=== PATIENT | male | born 1965 ===

== ENCOUNTER 2018-02-17 09:53 | Emergency (ER) | payer OTHER ==
[2018-02-17 10:07] VITALS: PULSE 80; RESP 18
--- NOTE | 2018-02-17 10:36 | C.PDOC ---
History Of Present Illness 52 year old male sent to the ER by primary care office for further evaluation. 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 Patient reports he fell down but does not think he had LOC. He is currently complaining of headache, nausea, dizziness described as lightheadedness, and notes the pain radiates down to his neck. Patient denies vomiting, visual changes, gait changes, facial droop, slurred speech, extremity weakness, sensory changes. - HPI Time Seen by Provider: 02/17/18 10:07 Chief Complaint (Nursing): Trauma History Per: Patient History/Exam Limitations: no limitations Onset/Duration Of Symptoms: Days Injury Occurred (Timing): Days Ago: Location Of Injury: Anterior: Head Severity: Moderate Recent travel outside of the [place]: No Past Medical History Reviewed: Historical Data, Nursing Documentation, Vital Signs Vital Signs: Last Vital Signs Temp 97.7 F 02/17/18 12:00 Pulse 80 02/17/18 12:00 Resp 18 02/17/18 12:00 BP 123/79 02/17/18 12:00 Pulse Ox 95 02/17/18 12:00 - Medical History PMH: Back Problems, Hypercholesterolemia Family History: States: No Known Family Hx - Social History Hx Alcohol Use: Yes Hx Substance Use: No Review Of Systems Constitutional: Negative for: Fever, Chills Cardiovascular: Negative for: Chest Pain Respiratory: Negative for: Shortness of Breath Gastrointestinal: Positive for: Nausea. Negative for: Vomiting, Abdominal Pain Neurological: Positive for: Headache, Dizziness (Lightheadedness). Negative for : Weakness, Numbness, Incoordination, Change in Speech, Confusion, Seizures, Altered Mental Status Physical Exam - Physical Exam Appears: Well, Non-toxic, Other (in mild discomfort ) Skin: Normal Color, Warm, Dry Head: Atraumatic, Normacephalic Eye(s): bilateral: Normal Inspection (no nystagmus ), PERRL, EOMI Ear(s): Bilateral: Normal ((-) Arrieta sign ) Nose: Normal Oral Mucosa: Moist Neck: Normal ROM, No Midline Cervical Tenderness, Paracervical Tenderness (Mild around c1-3), No Step Off Deformity, No Supple Cardiovascular: Rhythm Regular Respiratory: Normal Breath Sounds, No Rales, No Rhonchi, No Wheezing Extremity: Normal ROM, No Calf Tenderness, No Deformity, No Swelling Pulses: Left Dorsalis Pedis: Normal, Right Dorsalis Pedis: Normal Neurological/Psych: Oriented x3, Normal Speech, Normal Cognition, Normal Cranial Nerves, No Cerebellar Signs, Normal Motor, Normal Sensation Gait: Steady ED Course And Treatment O2 Sat by Pulse Oximetry: 97 (Room air) Pulse Ox Interpretation: Normal - CT Scan/US ct head Other Rad Studies (CT/US): Read By Radiologist, Radiology Report Reviewed CT/US Interpretation: Accession No. : [id number]. Patient Name / ID : LUKE ROSENBERG / [id number]. Exam Date : 02/17/2018 10:45:48 ( Approved ). Study Comment : Sex / Age : M / 52Y. Creator : Ayush Hurst MD. Dictator : Ayush Hurst MD. 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 Approver2 : Report Date : 02/17/2018 11:05:10. My Comment : . Date of service: 02/17/2018. PROCEDURE: CT HEAD WITHOUT CONTRAST. HISTORY: HEAD INJURY R/O BLEED. COMPARISON: None available. TECHNIQUE: Axial computed tomography images were obtained through the head/brain without intravenous contrast. Radiation dose: Total exam DLP = 856.4 mGy-cm. This CT exam was performed using one or more of the following dose reduction techniques : Automated exposure control, adjustment of the mA and/or kV according to patient size, and/or use of iterative reconstruction technique. FINDINGS: HEMORRHAGE: No intracranial hemorrhage. BRAIN: No mass effect or edema. No atrophy or chronic microvascular ischemic changes. VENTRICLES: Unremarkable. No hydrocephalus. CALVARIUM: Unremarkable. PARANASAL SINUSES: Unremarkable as visualized. No significant inflammatory changes. MASTOID AIR CELLS: Unremarkable as visualized. No inflammatory changes. OTHER FINDINGS: None. IMPRESSION: No acute intracranial pathology. Progress Note: Patient given PO Zofran ODT for nausea. CT head ordered and reviewed. Reevaluation Time: 12:00 Reassessment Condition: Improved (Patient reassessed, is resting comfortably, feeling better. Patient instructed to get plenty of rest, and to follow up with PMD in 1-2 days. He understands he should return to ED if he has any concerning symptoms.) Disposition Counseled Patient/Family Regarding: Studies Performed, Diagnosis, Need For Followup, Rx Given - Disposition Referrals: [facility] [Outside] Disposition: HOME/ ROUTINE Disposition Time: 12:00 Condition: STABLE Additional Instructions: FOLLOW UP WITH YOUR DOCTOR OR CLINIC IN 1-2 DAYS USE MEDICATION NEEDED FOR NAUSEA GET REST RETURN TO ER IF SYMPTOMS WORSEN Prescriptions: Ondansetron [Zofran Odt] 4 mg PO Q8 PRN #15 odt PRN Reason: Nausea/Vomiting Instructions: Closed Head Injury (DC) Forms: [employer] (Kiswahili) Print Language: ALBANIAN - POA Present On Arrival: Falls Or Trauma - Clinical Impression Clinical Impression: Closed head injury - Scribe Statement The provider has reviewed the documentation as recorded by the Scribe Jose Eduardo Goldberg All medical record entries made by the Scribe were at my direction and personally dictated by me. I have reviewed the chart and agree that the record accurately reflects my personal performance of the history, physical exam, medical decision making, and the department course for this patient. I have also personally directed, reviewed, and agree with the discharge instructions and disposition.
--- NOTE | 2018-02-17 11:06 | CT ---
Date of service: 02/17/2018 PROCEDURE: CT HEAD WITHOUT CONTRAST. HISTORY: HEAD INJURY R/O BLEED COMPARISON: None available. TECHNIQUE: Axial computed tomography images were obtained through the head/brain without intravenous contrast. Radiation dose: Total exam DLP = 856.4 mGy-cm. This CT exam was performed using one or more of the following dose reduction techniques: Automated exposure control, adjustment of the mA and/or kV according to patient size, and/or use of iterative reconstruction technique. FINDINGS: HEMORRHAGE: No intracranial hemorrhage. BRAIN: No mass effect or edema. No atrophy or chronic microvascular ischemic changes. VENTRICLES: Unremarkable. No hydrocephalus. CALVARIUM: Unremarkable. PARANASAL SINUSES: Unremarkable as visualized. No significant inflammatory changes. MASTOID AIR CELLS: Unremarkable as visualized. No inflammatory changes. OTHER FINDINGS: None. IMPRESSION: No acute intracranial pathology.
[2018-02-17 12:00] VITALS: BP 123/79; TEMP 97.7
[2018-02-18 16:39] VITALS: O2SAT 97
== END 2018-02-17 12:02 | disposition home or self-care (01) ==
LOC: C.ER 09:53
DX: S09.90XA Unspecified injury of head, initial encounter (principal); W19.XXXA Unspecified fall, initial encounter; E78.00 Pure hypercholesterolemia, unspecified